=== PATIENT | female | born 1970 | race Caucasian/White ===

== ENCOUNTER 2019-07-19 11:16 | Day surgery (SDC) | payer OTHER, SELFPAY ==
[2019-07-19] VITALS (8 sets, daily range): BP systolic 98–144; BP diastolic 63–79; PULSE 68–80; RESP 10–18; TEMP 36–36.5; O2SAT 98–100; BMI 23.0
--- NOTE | 2019-07-19 | PATH_ITS ---
[facility] Accession Number: [id number] . 01 Material submitted: . gastrointestinal site - GASTRIC BIOPSY . 01 Clinical history: . H.PYLORI . 02 Diagnosis: Stomach, Biopsy: Gastric body mucosa with mild chronic inflammation. Negative for Helicobacter organisms by immunohistochemistry. Negative for intestinal metaplasia. Negative for dysplasia or malignancy. [facility] 07/21/2019 1255 Local . 02 Electronically signed: . Juan Hedrick MD, PhD, Pathologist NPI- [id number] . 01 Gross description: . GASTRIC BIOPSY: Received in formalin are 2 fragment(s) of dale, soft tissue measuring 0.1 x 0.1 x 0.1 cm to 0.3 x 0.2 x 0.2 cm submitted entirely in 1 cassette(s) /[facility] 07/19/2019 2319 Local . 02 Microscopic: . An immunohistochemical stain was performed to evaluate for Helicobacter organisms and is negative. The control stain showed appropriate reactivity. . * This test was developed and its performance characteristics determined by [facility]. It has not been cleared or approved by the U.S. Food and Drug Administration. The FDA has determined that such clearance or approval is not necessary. This test is used for clinical purposes. It should not be regarded as investigational or for research. . 02 Pathologist provided ICD-10: R13.12, K29.70 . 02 CPT . 191092, [id number] Performed at: 01 [facility] [place] [address] [facility], [place], [place] [id number] MD Raghav Bello MD Phone: [phone] Performed at: 02 [facility] [place] [address] [place], [place] [id number] MD Iman Obregon MD Phone: [phone]
--- NOTE | 2019-07-19 11:34 | PM.HP.1 ---
History of Present Illness History of Present Illness Date Patient Seen: 07/19/19 Time Patient Seen: 11:34 Chief complaint: [id number] Narrative: Dysphagia, Patient History Medical History (Updated 07/19/19 @ 11:35 by Mary Cohen MD) Chronic sinusitis (Acute) Endometriosis (Acute) Exam Narrative Exam Narrative: Oropharynx free of lesions Chest clear to auscultation percussion Cardiac exam reveals no S3 or murmur Assessment & Plan Assessment & Plan narrative: Dysphagia. Rule out whether or cervical inlet patch or Zenker's diverticulum. Doubt more distal lesion. Risks benefits and alternatives been explained. Further recommendations will follow the results of the study.
--- NOTE | 2019-07-19 11:36 | PM.OP.ENDO ---
Operative Date/Time/Diagnoses Date of procedure: 07/19/19 Time of procedure: 11:37 Pre-op diagnosis: See indication and findings Procedure & Clinicians Study performed: EGD Same procedure as scheduled: Yes Indications: Dysphagia Surgeon: Mary Cohen Procedure Notes Procedure in detail: After informed consent was obtained the patient was placed in left lateral decubitus position. The video upper scope was placed into the oropharynx with the patient's help swallowed into the esophagus. The esophagus stomach and duodenum were carefully examined. On withdrawal, retroflexed view the GE junction was performed. The scope was removed. The patient tolerated procedure well. Blood loss none Complications none Sedation Total sedation time 10 minutes Fentanyl 100 mg Versed 3 mg IV titration Findings 1. Completely normal esophagus with no evidence of cervical inlet patch, web, peptic stricture or esophagitis. There were no findings consistent with eosinophilic esophagitis either. 2. Patchy pre-pyloric gastric erythema. There was also patchy duodenal bulb erythema without erosion. Biopsies were taken in the stomach to rule out Helicobacter. We'll inform the patient about biopsies and whether Helicobacter is present. If she desires further workup for her cervical dysphagia than might consider a video fluoroscopic swallowing study.
[2019-07-19] MEDS: SODIUM CHLORIDE 0.9% 1,000 ML 42 ML IV (11:44)
[2019-07-19] MEDS: MIDAZOLAM 5 MG/5 ML VIAL IV (12:28)
[2019-07-19] MEDS: fentaNYL 250 MCG/5 ML INJ IV (12:29)
--- NOTE | 2019-07-19 12:59 | SUR.PHASEI ---
Reported off to Fran Sharif RN. Patient stable, sleeping, arouses easily to voice. Skin warm and dry.
== END 2019-07-19 13:42 | disposition admitted as inpatient to this hospital (09) ==
PROVIDERS: PCP Family Medicine; Visit Provider Internal Medicine Gastroenterology
PROC: 0DJ08ZZ Inspection of Upper Intestinal Tract, Via Natural or Artificial Opening Endoscopic (ICD-10-PCS; CPT 43235; principal; 2019-07-19 12:30)
DX: K29.50 Unspecified chronic gastritis without bleeding (principal)
CPT/HCPCS: 43239; J2250; J3010

== ENCOUNTER → 2020-07-09 17:32 | Outpatient (CLI) | payer OTHER, SELFPAY ==
--- NOTE | 2020-07-09 | DI.MG.S_ITS ---
BILATERAL DIGITAL SCREENING MAMMOGRAM 3D/2D WITH CAD: 07/09/2020 CLINICAL: Routine screening. Family history of breast cancer. Comparison is made to exams dated: 05/21/2015 mammogram, 06/01/2013 mammogram, and 11/27/2010 mammogram - outside location. There are scattered fibroglandular elements in both breasts. Current study was also evaluated with a Computer Aided Detection (CAD) system. No significant masses, calcifications, or other findings are seen in either breast. There has been no significant interval change. IMPRESSION: NEGATIVE There is no mammographic evidence of malignancy. A 1 year screening mammogram is recommended. This exam was interpreted at Station ID: [id number]. NOTE: For mammograms, a report in lay terms will be sent to the patient. Approximately 15% of breast malignancies will not be visualized mammographically. In the management of a palpable breast mass, a negative mammogram must not discourage biopsy of a clinically suspicious lesion. Electronically Signed By: Bang luna/patrica:07/10/2020 08:23:58 letter sent: Normal Exam ACR BI-RADS Category 1: Negative [id number]
== END ==
PROVIDERS: PCP Family Medicine; Referring Provider Family Medicine; Visit Provider Family Medicine
DX: Z12.31 Encounter for screening mammogram for malignant neoplasm of breast (principal); Z80.3 Family history of malignant neoplasm of breast
CPT/HCPCS: 77063; 77067

== ENCOUNTER → 2022-05-09 12:17 | Outpatient (CLI) | payer OTHER, SELFPAY ==
[2022-05-09 14:09] LABS: Influenza A - CEPHEID Flu A NEGATIVE (NEGATIVE); Influenza B - CEPHEID Flu B NEGATIVE (NEGATIVE); Respiratory Syncytial Virus Negative (Negative)
[2022-05-09 14:10] LABS: COVID-19 CEPHEID 4-PLEX PCR Negative (Negative)
== END ==
PROVIDERS: PCP Family Medicine; Visit Provider Physician Assistant
DX: R50.9 Fever, unspecified (principal)
CPT/HCPCS: 0241U

== ENCOUNTER 2023-05-03 08:13 | Day surgery (SDC) | payer OTHER, SELFPAY ==
[2023-05-03 08:32] VITALS: BMI 24.2
[2023-05-03 08:37] VITALS: BP 147/97; PULSE 121; RESP 17; TEMP 36.6; O2SAT 98
[2023-05-03] MEDS: LACTATED RINGERS 1,000 ML 42 ML IV (08:42)
--- NOTE | 2023-05-03 09:08 | P.HP_ITS ---
History of Present Illness History of Present Illness Date Patient Seen: 05/03/23 Time Patient Seen: 09:08 Chief complaint: SDC Narrative: I reviewed my recent office note. No significant changes. She is struggled with constipation has never had colonoscopy before. [facility] Medical History (Updated 07/19/19 @ 11:35 by Mary Cohen MD) Chronic sinusitis Endometriosis Social History household members: spouse Smoking Status: Never smoker alcohol intake: never Meds Home Medications and Allergies Home Medications Medication Instructions Recorded Confirmed Type famotidine 20 mg tablet 20 mg PO BID 05/03/23 05/03/23 History losartan 25 mg tablet 25 mg PO DAILY 05/03/23 05/03/23 History zolpidem 5 mg tablet 5 mg PO ONCE PM PRN Sleep 05/03/23 05/03/23 History Allergies Allergy/AdvReac Type Severity Reaction Status Date / Time No Known Drug Allergies Allergy Verified 05/03/23 08:29 Review of Systems Review of Systems ROS: Yes All systems reviewed with the patient and are negative except as otherwise documented Exam Vital Signs (past 8 hours): - 05/03/23 08:37 Temperature 97.8 F Pulse Rate 121 H Respiratory Rate 17 Blood Pressure 147/97 H Pulse Oximetry 98 Oxygen Delivery Method Room Air Oxygen Delivery Method Room Air Const General: cooperative HENMT Head: normal to inspection Eyes General: appearance normal, both eyes and all related structures Neck Neck: normal visual inspection Chest Chest: normal inspection of the chest Resp Effort & Inspection: normal respiratory effort Cardio Rate: regular rate GI Inspection: normal to inspection Skin General: no rashes or lesions noted Neuro General: patient alert and patient awake Extrem General: normal to inspection and no pedal edema Psych Appearance: grossly normal Assessment & Plan Assessment & Plan narrative: 53-year-old female with chronic constipation. Colonoscopy is pursued today.
--- NOTE | 2023-05-03 09:10 | PM.PREOP ---
Pre-operative Note Interval Note History & Physical reviewed/Exam performed by Physician: Yes Changes to H&P: No ASA Class (for procedural sedation): II
[2023-05-03 10:00] VITALS: PULSE 103; RESP 23; O2SAT 98
[2023-05-03 10:03] VITALS: BP 105/69; PULSE 109; RESP 14; TEMP 37; O2SAT 96
[2023-05-03 10:05] VITALS: BP 116/63; PULSE 10; RESP 22; O2SAT 98
--- NOTE | 2023-05-03 10:06 | PM.OP.COLON ---
Operative Date/Time/Diagnoses Date of procedure: 05/03/23 Time of procedure: 10:06 Pre-op diagnosis: History of constipation. Post-op diagnosis: same Procedure & Clinicians Study performed: Colonoscopy Same procedure as scheduled: Yes Indications: History of constipation. Surgeon: Dov Garcia Procedure Notes SCOAP/Timeout: Done Procedure in detail: After the risks and benefits were explained, written and verbal informed consent was obtained. The patient was brought into the procedure room and placed into the left lateral decubitus position. Please see anesthesia notes for sedation details. Digital rectal examination was accomplished. The scope was introduced into the patient and advanced under direct visualization to the cecum as identified by the appendiceal orifice and ileocecal valve. The scope was slowly withdrawn to carefully examine the mucosa for any defects or lesions. Comprehensive imaging was accomplished throughout the rectum including the dentate line. The colon was decompressed, the scope was then removed from the patient who tolerated the procedure well. Pediatric colonoscope Bowel prep adequate Scope withdrawal time: 9 minutes Sedation minutes: 15 Specimen(s): none sent Complications: none Impression: Patient had a fairly tortuous colon. Navigation through the sigmoid was a little challenging as a result. I did not appreciate any significant polyps mass lesions or inflammatory features throughout. Endoscopic diagnosis 1. Tortuous colon 2. Otherwise visually normal exam Post-procedure Plan for aftercare: 1. Continue with fiber based bowel regimen discussed in the office. 2. Follow up GI clinic Disposition: PACU
[2023-05-03 10:10] VITALS: BP 135/84; PULSE 98; RESP 19; O2SAT 100
[2023-05-03 10:20] VITALS: BP 121/105; PULSE 101; RESP 16; TEMP 36.9; O2SAT 100
== END 2023-05-03 10:26 | disposition home or self-care (01) ==
PROVIDERS: PCP Family Medicine; Referring Provider Internal Medicine Gastroenterology; Visit Provider Internal Medicine Gastroenterology
PROC: 0DJD8ZZ Inspection of Lower Intestinal Tract, Via Natural or Artificial Opening Endoscopic (ICD-10-PCS; CPT 45378; principal; 2023-05-03 09:30)
DX: Z87.19 Personal history of other diseases of the digestive system (principal)
CPT/HCPCS: 45378; J2704

== ENCOUNTER 2023-12-20 16:49 | Emergency (ER) | payer OTHER, SELFPAY ==
[2023-12-20 16:56] VITALS: BP 138/83; PULSE 74; RESP 18; TEMP 36.3; O2SAT 99; BMI 23.0
[2023-12-20 17:01] VITALS: PULSE 76
--- NOTE | 2023-12-20 17:26 | DI.RAD.S_ITS ---
PROCEDURE: XR FINGER LT MIN 2V INDICATIONS: ?wood sliver TECHNIQUE: AP hand, 2 views of the 2nd finger(s) acquired. COMPARISON: None. FINDINGS: Bones: No fractures or dislocations. No suspicious bony lesions. Soft tissues: No suspicious soft tissue calcifications. No definitively identified radiopaque foreign body. IMPRESSION: No definitive radiopaque foreign body visualized. Dictated by: Rebekah Aleman M.D. on 12/20/2023 at 18:16 Approved by: Rebekah Aleman M.D. on 12/20/2023 at 18:17
[2023-12-20] MEDS: IBUPROFEN 400 MG TABLET 800 MG PO (17:49)
[2023-12-20] MEDS: LIDOCAINE 1% (PF) 5 ML 10 ML INJ (18:28)
[2023-12-20] MEDS: TET,DIPH,PERTUSS(ACELL),VAC/PF 0.5 ML SYRINGE IM (18:39)
[2023-12-20 18:43] VITALS: BP 142/76; PULSE 82; RESP 16; TEMP 36.5; O2SAT 98
--- NOTE | 2023-12-20 19:01 | ED_ITS ---
HPI - Extremity Injury (Upper) <Colt Driver PA-C - Last Filed: 12/20/23 19:07> General Chief Complaint: Extremity Injury, Upper Stated Complaint: wood inbetween fingernail and finger Time Seen by Provider: 12/20/23 17:02 Source: patient Mode of arrival: Ambulatory History of Present Illness HPI narrative: 53-year-old female presents to the ED status post a left index finger injury sustained earlier today. Patient states she was cleaning out her baseboards, when her fingertip hit some splinter wood, causing a splinter to large under the left index fingernail. Patient endorses pain and the sliver is visible under the nail. Tdap tetanus is unknown. No numbness, tingling, weakness. Related Data Home Medications Medication Instructions Recorded Confirmed famotidine 20 mg tablet 20 mg PO BID 05/03/23 05/03/23 losartan 25 mg tablet 25 mg PO DAILY 05/03/23 05/03/23 zolpidem 5 mg tablet 5 mg PO ONCE PM PRN Sleep 05/03/23 05/03/23 Allergies Allergy/AdvReac Type Severity Reaction Status Date / Time No Known Drug Allergies Allergy Verified 12/20/23 16:58 Review of Systems <Colt Driver PA-C - Last Filed: 12/20/23 19:07> Constitutional Constitutional: Denies chills, Denies fatigue, Denies fever(s), Denies frequent falls, Denies lethargy and Denies weakness Eyes Eyes: Denies change in vision, Denies eye discharge, Denies irritation and Raymond es loss of vision ENT Ears, Nose, Mouth, and Throat: Denies change in voice, Denies dizziness, Denies neck pain, Denies sore throat and Denies throat swelling Cardiovascular Cardiovascular: Denies chest pain, Denies irregular heart rhythm, Denies lightheadedness, Denies palpitations, Denies dyspnea, Denies dyspnea on exertion and Denies orthopnea Respiratory Respiratory: Denies cough, Denies dyspnea, Denies dyspnea on exertion and Denies wheezing Gastrointestinal Gastrointestinal: Denies abdominal pain, Denies change in bowel habits, Denies diarrhea, Denies nausea and Denies vomiting Musculoskeletal Musculoskeletal: Denies neck pain and Denies numbness Integumentary/Breasts Skin/Breast: Denies pruritus, Denies erythema, Denies rash and Denies wounds Comments: Splinter under fingernail on left index finger Neurologic Neurologic: Denies behavioral changes, Denies confusion, Denies dizziness, Denies frequent falls, Denies loss of vision, Denies numbness and Denies weakness Psychiatric Psychiatric: Denies anxiety, Denies behavioral changes, Denies confusion, Denies depression, Denies homicidal ideation and Denies suicidal ideation Endocrine Endocrine: Denies fatigue, Denies flushing and Denies palpitations Hematologic/Lymphatic Hematologic/Lymphatic: Denies easy bruising Allergic/Immunologic Allergic/Immunologic: Denies urticaria, Denies throat swelling and Denies wheezing Patient History <Colt Driver PA-C - Last Filed: 12/20/23 19:07> Medical History Chronic sinusitis Endometriosis Social History household members: spouse Smoking Status: Never smoker alcohol intake: never Smoking Status: Never smoker Substance Use Type: does not use Exam <Colt Driver PA-C - Last Filed: 12/20/23 19:07> Narrative Exam Narrative: Const General:?cooperative, healthy appearing and comfortable [facility] Head:?normal to inspection Ears:?hearing grossly normal bilaterally Nose:?external nose normal Face and sinus:?normal facial exam and sinuses nontender Mouth:?oral mucosae normal Throat:?posterior oropharynx normal Eyes General:?appearance normal, both eyes and all related structures Neck Neck:?normal visual inspection and no lymphadenopathy noted Resp Effort & Inspection:?normal respiratory effort Auscultation:?clear to auscultation bilaterally Cardio Rate:?regular rate Rhythm:?regular rhythm Integumentary There is a splinter visible under the left index fingernail. Neurovascularly intact. Neuro General:?patient alert, patient awake and patient oriented x3 Initial Vital Signs Initial Vital Signs: Vital Signs Temperature 97.4 F L 12/20/23 16:56 Pulse Rate 74 12/20/23 16:56 Respiratory Rate 18 12/20/23 16:56 Blood Pressure 138/83 12/20/23 16:56 Pulse Oximetry 99 12/20/23 16:56 Oxygen Delivery Method Room Air 12/20/23 16:56 <Mkie Rainey DO - Last Filed: 12/22/23 07:03> Initial Vital Signs Initial Vital Signs: Vital Signs Temperature 97.4 F L 12/20/23 16:56 Pulse Rate 74 12/20/23 16:56 Respiratory Rate 18 12/20/23 16:56 Blood Pressure 138/83 12/20/23 16:56 Pulse Oximetry 99 12/20/23 16:56 Oxygen Delivery Method Room Air 12/20/23 16:56 Procedures <Colt Driver PA-C - Last Filed: 12/20/23 19:07> Foreign Body OTHER Foreign Body Removal Site: left and hand Description of foreign body: other (Wood splinter) Sedation/Analgesia: other (Digital block with 1% lidocaine) Technique: removal with forceps Confirmed by:: direct visualization Complications: none Post-procedure exam: awake, alert Neurovascular: other (Neurovascularly intact) Course <Colt Driver PA-C - Last Filed: 12/20/23 19:07> Orders Ordered: Discontinued Medications Diphtheria/Tetanus/Acell Pertussis (Tet,Diph,Pertuss(Acell),Vac/Pf 0.5 Ml Syringe) 0.5 ml IM .ONCE ONE Stop: 12/20/23 18:37 Last Admin: 12/20/23 18:39 Dose: 0.5 ml Documented By: RB Ibuprofen (Ibuprofen 400 Mg Tablet) 800 mg PO NOW ONE Stop: 12/20/23 17:30 Last Admin: 12/20/23 17:49 Dose: 800 mg Documented By: RB Lidocaine HCl (Lidocaine 1% (Pf) 5 Ml) 10 ml INJ NOW ONE Stop: 12/20/23 17:54 Last Admin: 12/20/23 18:28 Dose: 10 ml Documented By: RB Vital Signs Vital signs: Vital Signs - 8 hr 12/20/23 16:56 12/20/23 17:01 12/20/23 18:43 Temperature 97.4 F L 97.7 F Pulse Rate 74 82 Pulse Rate [Left Radial] 76 Respiratory Rate 18 16 Blood Pressure 138/83 142/76 H Pulse Oximetry 99 98 Oxygen Delivery Method Room Air Room Air <Mike Rainey DO - Last Filed: 12/22/23 07:03> Orders Ordered: Discontinued Medications Diphtheria/Tetanus/Acell Pertussis (Tet,Diph,Pertuss(Acell),Vac/Pf 0.5 Ml Syringe) 0.5 ml IM .ONCE ONE Stop: 12/20/23 18:37 Last Admin: 12/20/23 18:39 Dose: 0.5 ml Documented By: RB Ibuprofen (Ibuprofen 400 Mg Tablet) 800 mg PO NOW ONE Stop: 12/20/23 17:30 Last Admin: 12/20/23 17:49 Dose: 800 mg Documented By: RB Lidocaine HCl (Lidocaine 1% (Pf) 5 Ml) 10 ml INJ NOW ONE Stop: 12/20/23 17:54 Last Admin: 12/20/23 18:28 Dose: 10 ml Documented By: RB Vital Signs Vital signs: Vital Signs - 8 hr 12/20/23 16:56 12/20/23 17:01 12/20/23 18:43 Temperature 97.4 F L 97.7 F Pulse Rate 74 82 Pulse Rate [Left Radial] 76 Respiratory Rate 18 16 Blood Pressure 138/83 142/76 H Pulse Oximetry 99 98 Oxygen Delivery Method Room Air Room Air MDM - Extremity Injury (Upper) <Colt Driver PA-C - Last Filed: 12/20/23 19:07> MDM Narrative Medical decision making narrative: 53-year-old female presents to the ED status post a left index finger injury sustained earlier today. X-ray was obtained without acute findings. Patient's finger was numbed with a digital block and the splinter removed easily. Tdap was updated. ED return precautions discussed with patient. Patient verbalized understanding. Medical records reviewed: Yes Discharge Plan Departure Patient Disposition: Home Clinical Impression: Splinter in skin Instructions: DI for Splinter Removal Activity Restrictions/Additional Instructions: You were evaluated in the ED today for a splint around your finger nail. The splinter was removed in the ED. your tetanus has been updated and should be good for the next 10 years. Please watch for signs of infection including worsening redness, swelling, pain, warmth, discharge. Return to the ED if you note any signs of infection. Please keep your finger bandaged with a Band-Aid until it is completely healed. Prescriptions: No Action famotidine 20 mg tablet 20 mg PO BID losartan 25 mg tablet 25 mg PO DAILY zolpidem 5 mg tablet 5 mg PO ONCE PM PRN (Reason: Sleep) Referrals: Amarilis Hill DO [Primary Care Provider] - Stand Alone Forms: Patient Portal/API ED Sign-out <Mike Rainey DO - Last Filed: 12/22/23 07:03> Cosign ED Attending Cosignature Attestation: Dr Rainey Co-Sign Statement: I was available for consultation during this patient's emergency department visit. This chart is signed by myself for administrative purposes only. I did not have direct contact with this patient during this visit. They were seen independently by the APC.
== END 2023-12-20 18:44 | disposition home or self-care (01) ==
PROVIDERS: Emergency Provider Student in an Organized Health Care Education/Training Program; PCP Family Medicine
DX: S60.451A Superficial foreign body of left index finger, initial encounter (principal); W45.8XXA Other foreign body or object entering through skin, initial encounter; Z23 Encounter for immunization
CPT/HCPCS: 10120; 73140; 90471; 99283; 99284; 90715

== ENCOUNTER 2025-03-12 20:18 | Observation (INO) | payer OTHER, SELFPAY ==
[2025-03-12] VITALS (9 sets, daily range): BP systolic 118–142; BP diastolic 56–78; PULSE 79–91; RESP 23; TEMP 35.9; O2SAT 99–100; BMI 23.4
[2025-03-12 20:50] LABS: Add Manual Diff / Slide Review NO; Hematocrit 40.7 % (36-46); Hemoglobin 14.0 g/dL (12.0-16.0); Lymphocytes Absolute Auto 1600 /uL (1100-4500); Mean Corpuscular HGB Conc 34.5 % (30-36); Mean Corpuscular Hemoglobin 30.0 PG (26-34); Mean Corpuscular Volume 87.0 fL (80-100); Platelet Count 394 X10^3/uL (150-400)
--- NOTE | 2025-03-12 20:54 | DI.CT.S_ITS ---
PROCEDURE: CT ABDOMEN PELVIS W CON INDICATIONS: rlq pain with elevated white count TECHNIQUE: After the administration of intravenous contrast, axial sections acquired from the lung bases to the pubic symphysis. Coronal and sagittal reformats were performed. For radiation dose reduction, the following was used: automated exposure control, adjustment of mA and/or kV according to patient size. COMPARISON: None. FINDINGS: Image quality: Diagnostic. Lower Chest: No significant findings. ABDOMEN: Liver: No solid mass. Gallbladder: No radiopaque gallstones or wall thickening. Biliary ducts: No biliary dilation. Pancreas: No ductal dilation. Spleen: Size is within normal limits. Adrenal Glands: No adrenal nodules. Kidneys and Ureters: No hydronephrosis. No solid mass. No complex renal cystic lesion which requires follow up. Stomach and Bowel: There is no bowel obstruction. No gastric or small bowel wall thickening. Appendix is visualized in right lower quadrant with significant appendiceal wall thickening and periappendiceal fat stranding concerning for acute appendicitis. There is no extra luminal air to suggest perforation. No appendicoliths or abscess collection. No colonic wall thickening. Mild fecal stasis in the colon is seen. Mild sigmoid diverticulosis without CT evidence of acute diverticulitis. Peritoneum: No abnormal intraperitoneal fluid. No free air. Ventral Wall: No significant ventral hernia. Abdominal Nodes: No retroperitoneal or mesenteric adenopathy by size criteria. Vessels: Aorta and inferior vena cava are normal in size. PELVIS: Pelvic Organs: Unremarkable. Bladder: No bladder wall thickening, accounting for underdistention. Pelvic Nodes: No enlarged lymph nodes. Miscellaneous: Small right inguinal hernia containing fat only. Bones: No aggressive osseous abnormality. IMPRESSION: 1. Finding is consistent with uncomplicated acute appendicitis in right lower quadrant. No abscess collection. No free fluid or free air. 2. [id number] constipation. Sigmoid diverticulosis without CT evidence of acute diverticulitis. Dictated by: Abisai Burris M.D. on 03/12/2025 at 21:42 Approved by: Abisai Burris M.D. on 03/12/2025 at 21:44
[2025-03-12] MEDS: ONDANSETRON 4 MG/2 ML INJ IV (21:05)
[2025-03-12] MEDS: MORPHINE 4 MG/ML INJ IV (21:05)
[2025-03-12 21:09] LABS: Alanine Aminotransferase 26 IU/L (<35); Albumin 4.9 g/dL (3.5-5.0); Albumin Globulin Ratio 1.4 (1.0-2.8); Alkaline Phosphatase 135 U/L (38-126); Blood Urea Nitrogen 15 mg/dL (7-17); Calcium 10.0 mg/dL (8.4-10.2); Carbon Dioxide 19 mmol/L (22-32); Chloride 105 mmol/L (98-107); Estimated Glomerular Filt Rate > 60 mL/min (>60); Globulin 3.4 g/dL (1.7-4.1); Glucose 164 mg/dL (70-99); HEMOLYSIS < 15 (0-50); Lipase 82 U/L (23-300); Potassium 4.5 mmol/L (3.4-5.1); Sodium 138 mmol/L (137-145); Total Protein 8.3 g/dL (6.3-8.2)
[2025-03-12 21:10] LABS: Lactate (Lactic Acid) 3.5 mmol/L (0.7-2.1)
[2025-03-12] MEDS: SODIUM CHLORIDE 0.9% 1,000 ML 1000 ML IV (21:12)
[2025-03-12 21:15] LABS: Magnesium 1.8 mg/dL (1.6-2.3)
--- NOTE | 2025-03-12 21:48 | ED.ABDPAIN ---
HPI - Abdominal Pain General Chief Complaint: Abdominal Pain Stated Complaint: abd pain , nausea , weakness Time Seen by Provider: 03/12/25 20:59 Source: patient Mode of arrival: Ambulatory History of Present Illness HPI narrative: Patient is a 54-year-old female without past medical history of hypertension GERD comes into the ED from home for evaluation of lower abdominal pain nausea and vomiting, states it started spontaneously nothing making it better or worse does have a remote history of hysterectomy. Patient denies any other symptoms such as headache visual disturbances chest pain shortness breath fever chills or any other GI/ symptoms at this time. Related Data Home Medications ?Medication ?Instructions ?Recorded ?Confirmed famotidine 20 mg tablet 20 mg PO BID 05/03/23 05/03/23 losartan 25 mg tablet 25 mg PO DAILY 05/03/23 05/03/23 zolpidem 5 mg tablet 5 mg PO ONCE PM PRN Sleep 05/03/23 05/03/23 Allergies Allergy/AdvReac Type Severity Reaction Status Date / Time No Known Drug Allergies Allergy Verified 03/12/25 20:34 Review of Systems Review of Systems Narrative: General: Denies fever, chills, weight loss HEENT: Denies headache, eye drainage, eye irritation, head trauma, sore throat, voice change Cardiovascular: Denies any chest pain, palpitations, tachycardia Respiratory: Denies any shortness of breath, cough, wheeze, stridor GI/: Positive abdominal pain, denies nausea, vomiting, diarrhea, bright red blood per rectum, melanotic stools, urinary frequency, urinary retention, dysuria, hematuria MSK: Denies any joint pain, muscle pains, swelling Skin: Denies any rashes, lesions, discoloration Neuro: Denies any headache, lightheadedness, dizziness, fainting, weakness Psych: Denies SI/HI Patient History Medical History Chronic sinusitis Endometriosis Social History household members: spouse Smoking Status: Former smoker alcohol intake: never Smoking Status: Former smoker Exam Narrative Exam Narrative: General: Cooperative, well-developed, not in acute distress HEENT: Normocephalic, atraumatic, PERRLA, normal sclera, eyelids normal Neck: Active full range of motion, atraumatic Chest: Normal to inspection, negative crepitus, no overlying erythema ecchymosis Respiratory: Normal respiratory effort, not in acute respiratory distress, clear to auscultation bilaterally negative cough, wheeze, tachypnea, rhonchi, rales Cardiology: Regular rate rhythm negative gallop, murmur, rubs GI/: Moderate tenderness to palpation lower abdomen, normal to inspection, exam deferred MSK: Full active range of motion in all 4 extremities, atraumatic, no tenderness to palpation of any bony prominences Skin: No rashes or lesions noted Neuro: Alert awake oriented x3, moves all 4 extremities spontaneously, cranial nerves intact, able to answer all questions appropriately follows commands appropriately Psych: Cooperative, negative suicidal or homicidal ideations Initial Vital Signs Initial Vital Signs: Vital Signs Temperature 96.7 F L 03/12/25 20:34 Pulse Rate 81 03/12/25 20:34 Respiratory Rate 23 03/12/25 20:34 Blood Pressure 139/78 03/12/25 20:34 Pulse Oximetry 100 03/12/25 20:34 Oxygen Delivery Method Room Air 03/12/25 20:34 Course Orders Ordered: ED Orders 03/12/25 20:40 Urine Culture Stat Urine Microscopic Stat 03/12/25 20:42 Complete Blood Count AUTO DIFF Stat Comprehensive Metabolic Panel Stat Lactate (Lactic Acid) Stat Lipase Stat MAG [Magnesium] Stat 03/12/25 20:54 CT abdomen pelvis w con Stat 03/12/25 22:25 EKG-12 Lead Stat Piperacillin Sod/Tazobactam (Sod 4.5 gm/ Sodium Chloride) 100 mls @ 200 mls/hr IV NOW ONE Stop: 03/13/25 04:29 Sodium Chloride (Normal Saline 0.9%) 125 mls @ 125 mls/hr IV DAILY RENETTA Ondansetron HCl (Ondansetron 4 Mg/2 Ml Inj) 4 mg IV NOW PRN PRN Reason: Nausea And Vomiting Ondansetron HCl (Ondansetron 4 Mg Odt) 4 mg PO NOW PRN PRN Reason: Nausea And Vomiting Discontinued Medications Sodium Chloride (Normal Saline 0.9%) 1,000 mls @ 1,000 mls/hr IV BOLUS ONE Stop: 03/12/25 21:58 Last Admin: 03/12/25 21:12 Dose: 1,000 mls/hr Documented By: HERLINDA Piperacillin Sod/Tazobactam (Sod 4.5 gm/ Sodium Chloride) 100 mls @ 200 mls/hr IV STAT ONE Stop: 03/12/25 21:50 Last Infusion: 03/12/25 22:40 Dose: Infused Morphine Sulfate (Morphine 4 Mg/Ml Inj) 4 mg IV NOW ONE Stop: 03/12/25 21:00 Last Admin: 03/12/25 21:05 Dose: 4 mg Documented By: HERLINDA Morphine Sulfate (Morphine 4 Mg/Ml Inj) 4 mg IV NOW ONE Stop: 03/12/25 21:01 Last Admin: 03/12/25 21:34 Dose: Not Given Documented By: HERLINDA Non-Formulary Medication (Normal Saline Iv) 125 cc IV DAILY RENETTA Ondansetron HCl (Ondansetron 4 Mg/2 Ml Inj) 4 mg IV NOW ONE Stop: 03/12/25 21:00 Last Admin: 03/12/25 21:05 Dose: 4 mg Documented By: HERLINDA Vital Signs Vital signs: Vital Signs - 8 hr 03/12/25 20:34 03/12/25 20:48 03/12/25 20:49 Temperature 96.7 F L Pulse Rate 81 81 Respiratory Rate 23 Blood Pressure 139/78 118/56 L Pulse Oximetry 100 100 Oxygen Delivery Method Room Air 03/12/25 20:49 03/12/25 21:00 03/12/25 21:00 Temperature Pulse Rate 81 83 Respiratory Rate Blood Pressure 128/60 Pulse Oximetry 100 100 Oxygen Delivery Method 03/12/25 21:30 03/12/25 21:30 03/12/25 21:58 Temperature Pulse Rate 85 91 H Respiratory Rate Blood Pressure 126/73 Pulse Oximetry 100 100 Oxygen Delivery Method 03/12/25 21:58 03/12/25 22:00 03/12/25 22:00 Temperature Pulse Rate 91 H Respiratory Rate Blood Pressure 140/73 142/77 H Pulse Oximetry 100 Oxygen Delivery Method 03/12/25 22:30 03/12/25 22:30 Temperature Pulse Rate 89 Respiratory Rate Blood Pressure 140/65 Pulse Oximetry 100 Oxygen Delivery Method MDM - Abdominal Pain Lab Data 03/12/25 20:42 03/12/25 20:42 Labs: Lab Results 03/12/25 03/12/25 Range/Units 20:40 20:42 WBC 16.4 H (4.5-11.0) X10^3/uL RBC 4.68 (4.0-5.2) X10^6/uL Hgb 14.0 (12.0-16.0) g/dL Hct 40.7 (36-46) % MCV 87.0 (80-100) fL MCH 30.0 (26-34) PG MCHC 34.5 (30-36) % RDW 13.1 (11.6-14.8) % Plt Count 394 (150-400) X10^3/uL Neut % (Auto) 85.1 H (50-75) % Lymph % (Auto) 9.8 L (25-40) % [place] % (Auto) 4.4 (3-14) % Eos % (Auto) 0.1 L (2-4) % Baso % (Auto) 0.6 (0-2) % Neut # (Auto) 34594 H (8947-3598) /uL Lymph # (Auto) 1600 (7532-4644) /uL [place] # (Auto) 700 (0-900) /uL Eos # (Auto) 0 (0-450) /uL Baso # (Auto) 100 (0-100) /uL Sodium 138 (137-145) mmol/L Potassium 4.5 (3.4-5.1) mmol/L Chloride 105 (98-107) mmol/L Carbon Dioxide 19 L (22-32) mmol/L BUN 15 (7-17) mg/dL Creatinine 0.66 (0.52-1.04) mg/dL Estimated GFR > 60 (>60) mL/min BUN/Creatinine Ratio 22.7 H (6-22) Glucose 164 H (70-99) mg/dL Lactate 3.5 H (0.7-2.1) mmol/L Calcium 10.0 (8.4-10.2) mg/dL Magnesium 1.8 (1.6-2.3) mg/dL Total Bilirubin 0.7 (0.2-1.3) mg/dL AST 29 (14-36) IU/L ALT 26 (<35) IU/L Alkaline Phosphatase 135 H (38-126) U/L Total Protein 8.3 H (6.3-8.2) g/dL Albumin 4.9 (3.5-5.0) g/dL Globulin 3.4 (1.7-4.1) g/dL Albumin/Globulin Ratio 1.4 (1.0-2.8) Lipase 82 (23-300) U/L Urine RBC None seen (0-5/HPF) Urine WBC 1-5/hpf (0-5/HPF) Ur Squamous Epith Cells 0-1 /hpf (0-5/HPF) Amorphous Sediment 3+ Urine Bacteria Few (2-10) H (None) Vol Urine Centrifuged 10ml (spun) Point of care testing: Urine Dip Bedside Urine Glucose Negative Bedside Urine Bilirubin - Negative Bedside Urine Ketone +++ 80 Urine Specific Capac 1.010 Bedside Urine Occult Blood - Negative Bedside Urine pH 8.5 Bedside Urine Protein +/- 15 Bedside Urine Urobilinogen - Negative Bedside Urine Nitrite - Negative Bedside Urine Leukocytes +/- 15 Esterase MDM Narrative Medical decision making narrative: 54-year-old female with a past medical history of hypertension presents to the emergency department from home for evaluation of sudden onset lower abdominal pain, describes it as dull achy pressure worse with palpation, states it started spontaneously at 1:00 p.m., patient states that as she does have a remote history of hysterectomy. She denies any other symptoms at this time. On my exam she has moderate tenderness to palpation of the lower abdomen, otherwise grossly normal. Patient did have a leukocytosis of 1600, elevated lactate, patient was given Zosyn fluids, CT scan consistent with acute appendicitis. This was updated to the patient she understands and agrees with the plan. ECG non ischemic in nature. patient evaluated by general surgery agrees to admit patient. 2154: Discussion with general surgeon Dr. Hinojosa, agrees to see patient in the emergency department for further evaluation recommendation. The patient's management plan was discussed Dr. Hinojosa, who agrees to admit the patient to their service and assumes care of this patient at this time. Full admission orders will be placed by the primary team. Discharge Plan Departure Patient Disposition: Admitted as Observation Clinical Impression: Acute appendicitis Admit Date/Time: 03/12/25 22:30 Admit Provider: Jaguar Hinojosa
[2025-03-12] MEDS: PIPERACILLIN/TAZO 4.5 GM in SODIUM CHLORIDE 0.9% 100 ML IV (22:01)
[2025-03-12 22:38] LABS: Reflexed Lactate in 2 Hours Y
--- NOTE | 2025-03-12 22:38 | PM.HP.IH.1 ---
History of Present Illness History of Present Illness Date Patient Seen: 03/12/25 Time Patient Seen: 10:35 Date of Onset of Symptoms: 03/12/25 Chief complaint: abd pain , nausea , weakness Narrative: Patient is a 54-year-old white female presents to the emergency room with right lower quadrant pain which is sharp and stabbing with radiation back to the back. Patient states it is constant states it hurts to laugh cough sneeze move and car ride was painful. She had nausea but no vomiting. She last ate at 6:30 a.m. had a drink of water at 2:00 p.m.. On a scale of 0-10 with onset was a 10. Patient had a CT scan performed which shows a normal gallbladder large swollen appendix with minimal periappendiceal inflammation diverticulosis absent uterus. Admitting laboratory shows WBC of 16.4 hemoglobin is 14.0 hematocrit is 40.7 platelets are 394,000 sodium is 138 potassium 4.5 chloride 105 bicarb is 19 BUN 50 creatinine and 0.66 random blood sugar is 164 lipase is 82 normal LFTs alkaline phosphatase is 135. I was asked to see the patient for surgical evaluation. Allergies: NKDA Medications: Amantadine, losartan, Ambien Past medical history: Corrective lenses, 5 para 4 miscarriage 1, hypertension, GERD, chronic sinusitis, history of endometriosis. Patient denies any other heart lungs digestive musculoskeletal neurological seizure disorder psychiatric problems risks were Infectious diseases HIV or AIDS. Past surgical history: History of endometrial ablation, followed by a RIAN with BSO, nasal surgery x2, colonoscopy in 2021 negative Social history: The patient denies any tobacco or recreational drug usage patient has 2 drinks per year. Vitals: Temperature is 96.7? pulse 85 respirations 23 BP is 126/72 SaO2 is 100% on room air. Patient is 5 ft tall 120 lb Head is normocephalic eyes PERRLA EOMI is intact nares are clear septum midline EACs and pinnae unremarkable oropharyngeal cavity is in moderate repair. Heart regular rate and rhythm without murmurs. Lungs are clear to auscultation no rales rhonchi or wheezes noted abdomen is soft nondistended with hypoactive bowel sounds patient has right lower quadrant pain with rebound and guarding positive jar test positive McBurney's positive Rovsing's. Musculoskeletal moderate muscle tone and strength bilaterally no gross deficits elicited. Impression: Acute right lower quadrant pain with CT scan showing acute appendicitis minimal periappendiceal inflammation. Patient has rebound and guarding. Plan: Discussed with patient and the findings need for laparoscopic appendectomy. Procedure risks and complications were fully explained including risk for cardiopulmonary depression infection bleeding bowel injury and conversion to open procedure. They understand and consent we will proceed to OR this date we will admit inpatient postoperatively we will follow patient closely all questions were answered to patient and satisfaction. PFSH Medical History Chronic sinusitis Endometriosis Social History household members: spouse Smoking Status: Former smoker alcohol intake: never Meds Home Medications and Allergies Home Medications ?Medication ?Instructions ?Recorded ?Confirmed ?Type famotidine 20 mg tablet 20 mg PO BID 05/03/23 05/03/23 History losartan 25 mg tablet 25 mg PO DAILY 05/03/23 05/03/23 History zolpidem 5 mg tablet 5 mg PO ONCE PM PRN Sleep 05/03/23 05/03/23 History Allergies Allergy/AdvReac Type Severity Reaction Status Date / Time No Known Drug Allergies Allergy Verified 03/12/25 20:34 Exam Vital Signs (past 8 hours): - 03/12/25 20:34 03/12/25 20:48 03/12/25 20:49 Temperature 96.7 F L Pulse Rate 81 81 Respiratory Rate 23 Blood Pressure 139/78 118/56 L Pulse Oximetry 100 100 Oxygen Delivery Method Room Air 03/12/25 20:49 03/12/25 21:00 03/12/25 21:00 Temperature Pulse Rate 81 83 Respiratory Rate Blood Pressure 128/60 Pulse Oximetry 100 100 Oxygen Delivery Method 03/12/25 21:30 03/12/25 21:30 03/12/25 21:58 Temperature Pulse Rate 85 91 H Respiratory Rate Blood Pressure 126/73 Pulse Oximetry 100 100 Oxygen Delivery Method 03/12/25 21:58 03/12/25 22:00 03/12/25 22:00 Temperature Pulse Rate 91 H Respiratory Rate Blood Pressure 140/73 142/77 H Pulse Oximetry 100 Oxygen Delivery Method 03/12/25 22:30 03/12/25 22:30 Temperature Pulse Rate 89 Respiratory Rate Blood Pressure 140/65 Pulse Oximetry 100 Oxygen Delivery Method Oxygen Delivery Method Room Air Objective Labs 03/12/25 20:42 03/12/25 20:42 Labs: Laboratory Results - last 24 hr 03/12/25 03/12/25 20:40 20:42 WBC 16.4 H RBC 4.68 Hgb 14.0 Hct 40.7 MCV 87.0 MCH 30.0 MCHC 34.5 RDW 13.1 Plt Count 394 Neut % (Auto) 85.1 H Lymph % (Auto) 9.8 L [place] % (Auto) 4.4 Eos % (Auto) 0.1 L Baso % (Auto) 0.6 Neut # (Auto) 03351 H Lymph # (Auto) 1600 [place] # (Auto) 700 Eos # (Auto) 0 Baso # (Auto) 100 Sodium 138 Potassium 4.5 Chloride 105 Carbon Dioxide 19 L BUN 15 Creatinine 0.66 Estimated GFR > 60 BUN/Creatinine Ratio 22.7 H Glucose 164 H Lactate 3.5 H Calcium 10.0 Magnesium 1.8 Total Bilirubin 0.7 AST 29 ALT 26 Alkaline Phosphatase 135 H Total Protein 8.3 H Albumin 4.9 Globulin 3.4 Albumin/Globulin Ratio 1.4 Lipase 82 Urine RBC None seen Urine WBC 1-5/hpf Ur Squamous Epith Cells 0-1 /hpf Amorphous Sediment 3+ Urine Bacteria Few (2-10) H Vol Urine Centrifuged 10ml (spun) Assessment & Plan Time-Based Coding :: [TOTAL MINUTES] spent with patient and on the chart (including review of chart, obtaining history, exam, reviewing outside data, placing orders, documenting exam and treatment plan, and counseling patient) on [DATE]. PROFEE Sericulturist Document charge(s): Yes
--- NOTE | 2025-03-12 22:41 | EKG_ITS ---
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
[2025-03-12 22:50] LABS: Lactate 2HR (Lactic Acid Rflx) 1.6 mmol/L (0.7-2.1)
[2025-03-12 22:56] LABS: INR 1.0 (0.9-1.3); Prothrombin Time 11.2 SECONDS (9.4-12.5)
[2025-03-12 22:59] LABS: PTT Partial Thromboplastin Tim 26 SECONDS (25.1-36.5)
[2025-03-12 23:00] LABS: Creatine Kinase 66 U/L (30-135)
[2025-03-12 23:13] LABS: NT-proBNP (BNP-Adult 18+) 38 pg/mL (<125); Troponin I < 0.012 ng/mL (0.01-0.034)
--- NOTE | 2025-03-12 23:27 | PC.NURSE ---
Surgery team in room with patient
[2025-03-12] MEDS: LACTATED RINGERS 1,000 ML 120 ML IV (23:37)
[2025-03-12] MEDS: PIPERACILLIN/TAZO 3.375 GM in SODIUM CHLORIDE 0.9% 100 ML IV (23:45)
[2025-03-13] VITALS (15 sets, daily range): BP systolic 101–130; BP diastolic 49–71; PULSE 20–97; RESP 12–25; TEMP 36.6–37.2; O2SAT 91–100
--- NOTE | 2025-03-13 | PATH_ITS ---
[facility] Accession Number: [id number] No. of containers..01 Tissue . 01 Material submitted: . appendix - APPENDIX . 01 Diagnosis: APPENDIX, APPENDECTOMY: Acute suppurative appendicitis with serositis. MRV 03/21/20256 Local . 01 Electronically signed: . Sita Miller DO, Pathologist NPI- [id number] . 01 Gross description: . Received in formalin with two identifiers and appendix is a dale vermiform appendix, 7.0 cm in length by 1.0 cm in diameter. The serosa is dale and roughened with adherent material consistent with exudate. The stapled margin is inked blue and a purple suture is tied circumferentially in the center of the specimen with no designation per the requisition. The lumen averages 0.3 cm in diameter and contains brown, semisolid material. The pulliam average 0.3 cm thick with no perforation or lesions identified. [employer] sections to include the entire bisected distal tip and cross-section are submitted in A1. ([id number]) /MRV 03/14/20252031 Local . 01 Pathologist provided ICD-10: K35.890 . 01 CPT . 246664 Specimen Comment: A courtesy copy of this report has been sent to [facility] Pathology Performed at: [address] [address], [place], [place] [id number] MD Raghav Bello MD Phone: [phone]
[2025-03-13] MEDS: BUPivacaine 0.25% W/ EPI (PF) 30 ML VIAL INJ (00:17)
--- NOTE | 2025-03-13 00:19 | SUR.OPER ---
Supine on padded OR bed, head on pillow,right arm secured on padded arm board at <90 degrees abduction, left arm padded and tucked at side, legs uncrossed, safety belt at thigh, tape over blanket over lower legs.
[2025-03-13] MEDS: LACTATED RINGERS 1,000 ML 120 ML IV (00:40)
--- NOTE | 2025-03-13 01:02 | P.OP_ITS ---
Operative Date/Time/Diagnoses Date of procedure: 03/13/25 Time of procedure: 01:00 Pre-op diagnosis: Acute right lower quadrant pain with CT scan showing acute appendicitis Post-op diagnosis: same (Acute appendicitis) Procedure & Clinicians Procedure: Patient was seen in consultation in the emergency room with right lower quadrant pain of [address] scan showing acute appendicitis. Discussed with patient and the need for laparoscopic appendectomy procedure risks and complications were fully explained including risk for cardiopulmonary depression infection bleeding bowel injury and conversion to open procedure they understood and consented. The patient had been NPO was brought to the surgery suite was administered a general inhalation endotracheal anesthetic. SCDs were placed Bautista catheter was placed bedside drainage IV antibiotics were given prepped and draped in the usual sterile fashion 3 minute time was elapsed prior to the procedure. Time-out was performed patient procedure and surgeon all in the room were in agreement. The patient had an infraumbilical incision made 15. Knife blade gently dissected down the fascia towel clip was used to elevate the umbilicus utilizing a Veress needle syringe and sterile normal saline advanced in the peritoneal cavity fluid was injected no fluid was returned drop test showed free flow into the peritoneal cavity. This was placed to continuous flow CO2 with the upper limits of 14 mmHg pressure had rapid insufflation loss of liver dullness 14 mm Hg pressure. The Veress needle was then removed a blunt 5 mm port was placed trocar was removed place continuous flow CO2. Scope camera light source were introduced a very inflamed appendix was noted going into the pelvis with a long redundant colon. Absent uterus was noted. The patient then had 5 mm port was placed suprapubic site incision made a 15. Knife blade placed under direct visualization. The patient then had a 12 mm port was placed in the right upper quadrant under direct visualization incision was made a 15. Knife blade. The patient was then placed in Trendelenburg with left lateral the appendix was grasped delivered in the surgical field endoloop was placed around this helped facilitate manipulation. A window was made in avascular portion of the mesoappendix after freeing up all adhesions. Endo-LUANA with a bowel load was then placed across the base of the appendix checked anterior-posterior prior to clamping anterior-posterior prior to firing. A 2nd Endo-LUANA with a vascular load was then placed across the mesoappendix checked anterior-posterior prior to clamping anterior-posterior prior to firing. Ileocecal valve was noted a generous distance away and this was then fired patient then had 2nd bowel load was placed across some redundant ai this was also checked anterior- posterior prior to clamping and firing appendix was then ascending an Endo-Catch bag easily extracted out of the right upper quadrant port site and submitted to pathology. The patient then had an endo close with 0 Vicryl was placed but not tied the port was replaced and patient was then copiously irrigated with sterile saline and suctioned dry small amount of oozing was noted from the staple lines this controlled electrocautery excellent hemostasis was achieved the patient then had all abdominal contents returned back in anatomical position no need for drain. The patient's incision were injected Marcaine 0.25% with epi under direct visualization peritoneum muscle fascia Q and skin. Patient then had all instrumentation was removed after sucking out all fluid. Patient was desufflated the fingers and reduced of the right upper quadrant port site no abdominal contents noted protruding through an endo close of 0 Vicryl was tied. Wounds were irrigated out with sterile saline. And closed in layers with interrupted 0 Vicryl. Skin was closed with the interim for did 4-0 Vicryl. Patient's wounds were cleansed with sterile saline blotted dry bicarb with half- inch Steri-Strips bulky bandages and taped in place. First and 2nd sponge instrument and needle counts found to be correct. Patient tolerated procedure well without an incident or complication returned to recovery room in satisfactory condition. Postoperatively we will admit to inpatient started on diet continue with antibiotics recheck laboratory in the morning. Patient and were given normal postoperative instructions on lifting stairs walking driving diet bathing exercise infectious changes wound care. Patient will be discharged with oral narcotics. Follow up in the office for wound check and path report in 2 weeks or if any problems questions concerns we will discharge in 24-48 hours. Same procedure(s) as scheduled: Yes (Laparoscopic appendectomy) Surgeon: Jaguar Hinojosa Click Yes if Unassisted: Yes Anesthesia Type: General Operative Notes Findings: Acute appendicitis Closure Type: primary Prosthetic devices, grafts, tissues, transplants, or devices: Appendix sent to pathology Applied: none Estimated Blood Loss (mL): 5 Blood products transfused: none Complications: none Post-operative Condition: stable Disposition: PACU
[2025-03-13] MEDS: ACETAMINOPHEN IV 1,000 MG/100 ML VIAL 400 MG IV (01:04)
[2025-03-13] MEDS: ACETAMINOPHEN 325 MG TABLET 650 MG PO (02:24)
[2025-03-13] MEDS: LACTATED RINGERS 1,000 ML 125 ML IV (02:28)
[2025-03-13 04:21] LABS: Add Manual Diff / Slide Review NO; Hematocrit 33.6 % (36-46); Hemoglobin 11.4 g/dL (12.0-16.0); Lymphocytes Absolute Auto 500 /uL (1100-4500); Mean Corpuscular HGB Conc 33.9 % (30-36); Mean Corpuscular Hemoglobin 30.0 PG (26-34); Mean Corpuscular Volume 88.5 fL (80-100); Platelet Count 260 X10^3/uL (150-400)
[2025-03-13] MEDS: diphenhydrAMINE 50 MG/ML VIAL IV (06:10)
[2025-03-13] MEDS: ENOXAPARIN 40 MG/0.4 ML SYRINGE SUBCUT (10:10)
[2025-03-13] MEDS: FAMOTIDINE 20 MG TABLET PO (10:10)
--- NOTE | 2025-03-13 10:37 | P.PN_ITS ---
Subjective Subjective Date Patient Seen: 03/13/25 Time Patient Seen: 10:37 Interval history: Patient is approaching 12 hours status post laparoscopic appendectomy for an uncomplicated acute appendicitis. Patient is doing well and pain is being well managed with the pain regimen. She is tolerating a liquid diet and is anxious to progress to a regular diet. She is also anxious to go home. Exam Vital Signs (past 8 hours): - 03/13/25 02:45 03/13/25 03:45 03/13/25 04:45 Temperature Pulse Rate 82 80 76 Respiratory Rate 18 18 18 Blood Pressure 104/52 L 103/49 L 103/56 L Pulse Oximetry 98 98 100 Oxygen Flow Rate 2 2 2 03/13/25 05:20 03/13/25 08:00 Temperature 97.9 F Pulse Rate 77 77 Respiratory Rate 18 12 Blood Pressure 101/61 118/71 Pulse Oximetry 99 99 Oxygen Flow Rate 2 2 Oxygen Delivery Method Nasal Cannula Oxygen Flow Rate 2 Narrative Exam Narrative: The patient is alert oriented Lungs are clear to auscultation bilaterally Cardiac reveals a regular rate and rhythm Abdomen is soft with some mild right lower quadrant tenderness without guarding or rigidity. Bowel sounds are active. All dressings are dry and intact. There is some ecchymosis inferiorly below the suprapubic incision. Objective Labs 03/13/25 03:54 03/12/25 20:42 Labs: Laboratory Results - last 24 hr 03/12/25 03/12/25 03/12/25 20:40 20:42 22:30 WBC 16.4 H RBC 4.68 Hgb 14.0 Hct 40.7 MCV 87.0 MCH 30.0 MCHC 34.5 RDW 13.1 Plt Count 394 Neut % (Auto) 85.1 H Lymph % (Auto) 9.8 L [place] % (Auto) 4.4 Eos % (Auto) 0.1 L Baso % (Auto) 0.6 Neut # (Auto) 45506 H Lymph # (Auto) 1600 [place] # (Auto) 700 Eos # (Auto) 0 Baso # (Auto) 100 PT 11.2 INR 1.0 APTT 26 Sodium 138 Potassium 4.5 Chloride 105 Carbon Dioxide 19 L BUN 15 Creatinine 0.66 Estimated GFR > 60 BUN/Creatinine Ratio 22.7 H Glucose 164 H Lactate 3.5 H 1.6 Calcium 10.0 Magnesium 1.8 Total Bilirubin 0.7 AST 29 ALT 26 Alkaline Phosphatase 135 H Total Creatine Kinase 66 Troponin I < 0.012 NT-Pro-B Natriuret Pep 38 Total Protein 8.3 H Albumin 4.9 Globulin 3.4 Albumin/Globulin Ratio 1.4 Lipase 82 Urine RBC None seen Urine WBC 1-5/hpf Ur Squamous Epith Cells 0-1 /hpf Amorphous Sediment 3+ Urine Bacteria Few (2-10) H Vol Urine Centrifuged 10ml (spun) 03/13/25 03:54 WBC 16.3 H RBC 3.80 L Hgb 11.4 L Hct 33.6 L MCV 88.5 MCH 30.0 MCHC 33.9 RDW 13.4 Plt Count 260 Neut % (Auto) 94.9 H Lymph % (Auto) 2.8 L [place] % (Auto) 2.2 L Eos % (Auto) 0.0 L Baso % (Auto) 0.1 Neut # (Auto) 68582 H Lymph # (Auto) 500 L [place] # (Auto) 400 Eos # (Auto) 0 Baso # (Auto) 0 PT INR APTT Sodium Potassium Chloride Carbon Dioxide BUN Creatinine Estimated GFR BUN/Creatinine Ratio Glucose Lactate Calcium Magnesium Total Bilirubin AST ALT Alkaline Phosphatase Total Creatine Kinase Troponin I NT-Pro-B Natriuret Pep Total Protein Albumin Globulin Albumin/Globulin Ratio Lipase Urine RBC Urine WBC Ur Squamous Epith Cells Amorphous Sediment Urine Bacteria Vol Urine Centrifuged [facility] Medical History Chronic sinusitis Endometriosis Social History household members: spouse Smoking Status: Former smoker alcohol intake: never Assessment & Plan Assessment and plan (1) Acute appendicitis: Status: Acute Plan The patient is doing well 12 hours status post laparoscopic appendectomy for an uncomplicated appendicitis. We will discharge the patient to home. We discussed expected recovery and postoperative restrictions. She will follow up with her primary care provider at [place]. Time-Based Coding :: [TOTAL MINUTES] spent with patient and on the chart (including review of chart, obtaining history, exam, reviewing outside data, placing orders, documenting exam and treatment plan, and counseling patient) on [DATE]. 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
--- NOTE | 2025-03-13 11:31 | CM.DANOTE ---
Initial DCP Assessment Visit Note Reviewed EMR and team rounds for pt's medical status and updates. Met with patient and spouse at bedside to introduce self and role. Pt was found to be alert/oriented, drowsy, but expressed having good pain control. Pt has been medically cleared for home d/c today. Pt resides independently in her own home w/spouse, he will also transport her home. No CM d/c assistance or resource needs are identified at this time. Payor: Denisse Tovar PCP: Amarilis Hurtado Pt is a 54 year-old who presented to the ED with c/o sudden onset lower abdominal pain, nausea, and vomiting that continued even without having eaten. CT imaging was positive for acute appendicitis. She was started on IV Zosyn, fluids, and IV antibiotics. Surgery was consulted, and the plan was made to admit to OBS, surgery last evening. Pt has done well postoperatively and has been medically discharged home. 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 No History Provided By Patient,Medical Record Has Patient been No admitted in last 30 days? Prior Living House Arrangements Household Members spouse Type of Drives own vehicle transporation used prior to admit Independent with ADL Yes 's Is patient alert and Yes oriented? Caregiver for No Another Comment No identified home d/c needs at this time. Barriers to No Discharge Discharge Plan Home Referrals Initiated None needed Whiteboard Updated Yes in Patient Room with name and ext. 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
--- NOTE | 2025-03-13 13:14 | PC.NURSE ---
Discharge: Pt feels ready to d/c to home. Seen by MD and given D/c instructions. Reviewed d/c instructions. Rx has been esent. Questions answered. Pt d/c to home via auto with spouse.
== END 2025-03-13 13:00 | disposition home or self-care (01) ==
LOC: ED 22:26 → AC 22:36
PROVIDERS: Admitting Provider Surgery; Emergency Provider Student in an Organized Health Care Education/Training Program; PCP Family Medicine; Referring Provider Student in an Organized Health Care Education/Training Program; Visit Provider Surgery
PROC: 0DTJ4ZZ Resection of Appendix, Percutaneous Endoscopic Approach (ICD-10-PCS; CPT 44970; principal; 2025-03-13)
DX: K35.80 Unspecified acute appendicitis (principal); I10 Essential (primary) hypertension; K21.9 Gastro-esophageal reflux disease without esophagitis; Z87.891 Personal history of nicotine dependence; Z90.710 Acquired absence of both cervix and uterus; Z90.79 Acquired absence of other genital organ(s); Z90.722 Acquired absence of ovaries, bilateral
CPT/HCPCS: 44970; 36415; 74177; 80053; 81003; 81015; 82550; 83605; 83690; 83735; 83880; 84484; 85025; 85610; 85730; 87086; 93005; 93010; 96361; 96365; 96372; 96375; 99222; 99284; G0378; A9270; J0131; J1100; J1171; J1200; J1650; J2272; J2405; J2543; J2704; J3010; J3490; Q9967